=== PATIENT | female | born 1985 | race Caucasian/White ===

== ENCOUNTER → 2016-04-21 | Outpatient (CLI) | payer BC ==
[~2016-04-21] MED LIST: DOCU-94; LEVO88TA PO; NITR1CAP33 PO; OXYB10TA PO; PREN1CHW PO
== END | disposition home or self-care (01) ==
LOC: C.PAPS 10:28
PROVIDERS: ATTEND Obstetrics & Gynecology
DX: Z39.2 Encounter for routine postpartum follow-up (principal)

== ENCOUNTER → 2016-06-08 | Outpatient (CLI) | payer BC | END | disposition home or self-care (01) | LOC: C.RDSM 10:09 | PROVIDERS: ATTEND Physical Medicine & Rehabilitation Sports Medicine | DX: R52 Pain, unspecified (principal) ==